=== PATIENT | female | born 1965 | race Caucasian/White ===

== ENCOUNTER 2019-11-22 05:55 | Day surgery (SDC) | payer MEDICAID ==
[~2019-11-22] VITALS: Ht 152.4 cm; Wt 72.6 kg
[2019-11-22] MEDS ORDERED: MIDAZOLAM 2 MG/2 ML VIAL ONE ×2 (07:22)
[2019-11-22] MEDS ORDERED: fentaNYL 0.05 MG/ML VIAL ONE (07:22)
[2019-11-22] MEDS ORDERED: LIDOCAINE 2% 100 MG/5 ML UJET TP ONE ×2 (07:22→07:44)
[2019-11-22] MEDS ORDERED: MIDAZOLAM 2 MG/2 ML VIAL IVP ONE (07:31)
[2019-11-22] MEDS ORDERED: fentaNYL 0.05 MG/ML VIAL IVP ONE (07:33)
[2019-11-22] MEDS ORDERED: LIDOCAINE JELLY 2% 30 ML TUBE TP ONE (07:44)
== END 2019-11-22 09:07 | disposition home or self-care (01) ==
LOC: MDS 05:55 → MMU 06:08 → MDS 09:07
PROVIDERS: ATTEND Internal Medicine Gastroenterology
DX: R14.0 Abdominal distension (gaseous) (principal); K44.9 Diaphragmatic hernia without obstruction or gangrene; K21.0 Gastro-esophageal reflux disease with esophagitis; E66.9 Obesity, unspecified; I10 Essential (primary) hypertension; E78.00 Pure hypercholesterolemia, unspecified; Z79.82 Long term (current) use of aspirin; Z79.899 Other long term (current) drug therapy
CPT/HCPCS: 43235; 45378; J2250; J3010